=== PATIENT | female | born 1990 | race Caucasian/White ===

== ENCOUNTER 2018-03-29 15:30 | Inpatient (IN) ==
--- NOTE | 2018-03-29 16:27 | Diag Imaging Result Doc PS360 ---
EXAM: KUB ABDOMEN - 03/29/2018 HISTORY: post op constipation TECHNIQUE: AP spine abdomen COMPARISON: None. FINDINGS: There is relative paucity of visible bowel gas. There is a small amount of gas visible in the stomach and mid transverse colon. There is mild gaseous distention of a loop of small bowel in the midabdomen. There is no other abnormal gaseous bowel distention identified. There is no obvious excessive retained fecal debris in the colon. There are surgical clips at the right upper quadrant. IMPRESSION: Relatively paucity of visible bowel gas. There is mild gaseous distention of a loop of small bowel at the midabdomen. There is no obvious excessive retained fecal debris in the colon. Electronically signed by Mason Coyle 03/29/2018 4:25 PM
[2018-03-29 16:38] LABS: BILIRUBIN URINE 2+ (NEGATIVE); BLOOD URINE 4+ (NEGATIVE); CLARITY VERY CLOUDY (CLEAR); GLUCOSE URINE NEGATIVE (NEGATIVE); KETONE URINE 3+(Large) mg/dL (NEGATIVE); LEUKOCYTES URINE 1+ (NEGATIVE); NITRITE URINE NEGATIVE (NEGATIVE); PH URINE 6.5; PROTEIN URINE 1+(30 mg/dL) mg/dL (NEGATIVE); UROBILINOGEN URINE 4 mg/dL
[2018-03-29 16:42] LABS: COLOR ORANGE; URINE BACTERIA 1+ /HFP; URINE EPITHELIAL CELLS >10 /HPF (<10)
[2018-03-29 16:43] LABS: URINE CAST NONE SEEN /LPF; URINE CRYSTAL NONE SEEN /HPF; URINE RBC TNTC /HPF (<10); URINE SOURCE CLEAN CATCH; URINE YEAST NONE SEEN /HPF
[2018-03-29] MEDS ORDERED: NS 1,000 ML IV ONE (17:38)
[2018-03-29] MEDS ORDERED: ZOFRAN IV ONE (17:38)
--- NOTE | 2018-03-29 17:44 | PROVIDER DOCUMENTATION ---
HPI-Abdominal Pain/GI Problem - General Chief Complaint: Post Op Complaint Stated Complaint: ABD PAIN Time Seen by Provider: 03/29/18 17:04 Allergies/Adverse Reactions: Patient Allergies Allergy/AdvReac Type Severity Reaction Status Date / Time albuterol Allergy Unknown Verified 12/23/17 18:13 promethazine HCl * Allergy ANAPHYLAXIS Verified 12/23/17 18:13 [From Phenergan] Home Medications: Home Medication List Medication Instructions Recorded Confirmed Last Taken Type Vit #108/Iron/FA 1 each PO DAILY 09/23/15 03/29/18 Unknown History [ One Tablet] Hydrocodone/APAP 5 mg/325 mg 1 each PO Q3H PRN PRN #30 tablet 09/25/15 03/29/18 Unknown Rx [[place]-5] Pyridoxine HCl [Vitamin B-6] 25 mg PO TID PRN #20 tab 05/14/17 03/29/18 Unknown Rx Brexpiprazole [Rexulti] 1 mg PO DAILY 03/30/18 03/30/18 Unknown History Ergocalciferol (Vitamin D2) 50,000 unit PO Q7D 03/30/18 03/30/18 Unknown History [Vitamin D] Escitalopram Oxalate [Lexapro] 10 mg PO DAILY 03/30/18 03/30/18 Unknown History Escitalopram Oxalate [Lexapro] 10 mg PO DAILY 03/30/18 03/30/18 Unknown History Metoclopramide [Reglan Liquid] 5 mg PO Q6HR 03/30/18 03/30/18 Unknown History - History of Present Illness-ABD Nature of Presenting Problems: Patient said she had cholecystectomy 1 week ago and since that time had nausea, sick stomach, small amount of watery stool for the last few days. she denies vomiting. report not eating just drink fluid. Review of Systems - Adult - REVIEW OF SYSTEMS - ADULT Constitutional: reports: no symptoms reported Eyes: reports: no symptoms reported Ears, Nose, Mouth & Throat: reports: no symptoms reported Cardiovascular: reports: no symptoms reported Respiratory: reports: no symptoms reported Gastrointestinal: reports: see HPI Genitourinary: reports: dysuria, hesitency Past History - Adult - PAST MEDICAL HISTORY-ADULT Review of Records: reports: Old Records Reviewed, Nursing Assessment Review, Medications Reviewed, Social history reviewed & non-contributory. Major Childhood Illnesses: reports: denies history Cardiovascular: reports: denies history Respiratory: reports: denies history Gastrointestinal: reports: denies history Obstetrical/Gynecological: reports: denies history Genitourinary: reports: denies history Musculoskeletal: reports: denies history Neurological: reports: denies history Endocrine/Immune: reports: denies history Other Conditions: reports: denies history - IMMUNIZATION STATUS Childhood Immunizations: See Nurse Assessment Flu Vaccine: See Nurse Assessment - FAMILY HISTORY Family History: reviewed, not pertinent Physical Exam-General - PHYSICAL EXAM-ADULT Initial Vital Signs Reviewed: Yes - CONSTITUTIONAL General Appearance: alert, obese, other (looks tired) - EYES Eyes: PERRL/EOMI - HEAD, EARS, NOSE, MOUTH & THROAT HENMT: normocephalic/atraumatic, moist mucous membranes - NECK Neck: non-tender, full range of motion, supple - RESPIRATORY Respiratory: lungs clear, normal breath sounds - CARDIOVASCULAR Cardiovascular: normal peripheral pulses, regular rate, rhythm, no edema - GASTROINTESTINAL (ABDOMEN) Abdominal Exam: normal bowel sounds, soft, tenderness (around surgery site, lower abdominal tenderness.) - MUSCULOSKELETAL Back Exam: normal inspection, no CVA tenderness, no vertebral tenderness Extremity: normal range of motion, non-tender Progress - PLAN OF CARE/RESULTS Progress/Plan/Lab Results: Vital Signs - 8 hr 03/29/18 15:37 03/29/18 16:33 Temperature 98 F 98.4 F Pulse Rate 122 H 89 Respiratory Rate 18 18 Blood Pressure 138/89 O2 Sat by Pulse Oximetry 97 100 Bedside Urine ED: Urine Bedside Start: 03/29/18 15:41 Freq: ORDERED Status: Active Protocol: Activity Type Activity Date Activity User E-Sign Co-Sign Detail Recorded Client Recorded Date Recorded By Document 03/29/18 15:49 [id number] 03/29/18 15:49 [id number] 03/29/18 15:49 Point of Care [Bedside Point of Care] -Lot # [id number] - Results Negative -Control Line Visible? Yes Laboratory Results - last 24 hr 03/29/18 15:47 Urine Source CLEAN CATCH Urine Color ORANGE Urine Clarity VERY CLOUDY A Urine pH 6.5 Ur Specific [place] 1.010 Urine Protein 1+(30 mg/dL) A Urine Ketones 3+(Large) A Urine Blood 4+ Urine Nitrite NEGATIVE Urine Bilirubin 2+ A Urine Urobilinogen 4 Urine Microscopic RBC TNTC A Urine WBC 1+ A Urine Microscopic WBC 10-20 A Ur Epithelial Cells >10 A Urine Crystals NONE SEEN Urine Bacteria 1+ Urine Casts NONE SEEN Urine Yeast NONE SEEN Urine Glucose NEGATIVE Orders Category Date Time Status ED: Urine Bedside ORDERED Care 03/29/18 15:41 Active KUB ABDOMEN [RAD] Stat Exams 03/29/18 15:48 Completed CBC WITH ELECTRONIC DIFF [HEME] Stat Lab 03/29/18 17:28 Ordered CMP [COMPREHENSIVE METABOLIC PANEL] [CHEM] Stat Lab 03/29/18 17:[address] W/POSS RFLX CULT [URINALYSIS] Stat Lab 03/29/18 15:47 Completed URINE CULTURE [RM] Routine Lab 03/29/18 16:43 Ordered 0.9% Sodium Chloride Inj [Ns] 1,000 ml Med 03/29/18 17:38 Active IV 999 mls/hr Ondansetron [Zofran] Med 03/29/18 17:38 Once 8 mg IV NOW ONE Patient care, assessment and plan discussed with the attending physician Dr. Loomis and he agree with the plan as documented. Result Diagrams: 03/30/18 07:08 03/30/18 07:08 - CONSULTS/PCP/HOSPITALIST Notification #1 *Consult/PCP/Hospitalist*: Dr. Fishman Time Discussed: 18:49 Consult Disposition: Admit (Hx, PE and care discussed with Dr. Fishman, accepted.) Departure - Departure Date of Disposition Decision: 03/29/18 Time of Disposition Decision: 18:49 DIAGNOSIS: Hyponatremia, Hypoalbuminemia, Hyperbilirubinemia Leukocytosis Qualifiers: Leukocytosis type: unspecified Qualified Code(s): D72.829 - Elevated white blood cell count, unspecified Disposition: ADMITTED INPATIENT 09 Certified Medical Emergency: Emergent Condition: Stable - Critical Care Note This patient required my direct & personal management of CC.: No Attestation - Physician/ CHRIS Attestation Patient care was provided by Advanced Practice Provider:: No The physician spent face to face time with patient:: Yes Advanced Practice Provider documentation review:: Supervising physician onsite and consulted in the evaluation and care of this patient. The physician did have a face to face encounter with the patient.
[2018-03-29 18:13] LABS: ESTIMATED GFR > 60
[2018-03-29 18:24] LABS: AGAP 16; ALBUMIN 2.9 g/dL (3.5-5.0); ALKALINE PHOSPHATASE 172 U/L (32-104); BUN 13 mg/dL (8-22); CALCIUM 8.9 mg/dL (8.8-10.2); CHLORIDE 82 mmol/L (98-107); COSMO 254; CREATININE 0.5 mg/dL (0.5-0.9); GLUCOSE 101 mg/dL (70-104); GOT 63 U/L (10-30); GPT 124 U/L (10-36); POTASSIUM 4.3 mmol/L (3.5-5.1); SODIUM 126 mmol/L (136-145); TCO2 27 mmol/L (25-35); TOTAL PROTEIN 7.5 g/dL (6.3-8.3)
[2018-03-29 18:47] LABS: WBC 16.32 X1000 (4.8-10.8)
[2018-03-29 18:48] LABS: HEMATOCRIT 42.6 % (37.0-47.0); HEMOGLOBIN 14.5 g/dL (12.0-16.0); MCH 29.4 PG (27-31); MCV 86.2 FL (81-99); MPV 10.7 FL (7.4-10.4); PLT 317 X1000 (130-400); RBC 4.94 XMIL (4.2-5.4)
[2018-03-29] MEDS ORDERED: ROCEPHIN 1 GM in NS 50 ML IV ONE (18:48)
[2018-03-29 18:49] LABS: BASO% 0.1 % (0.0-0.8); EOS% 0.1 % (0.0-10.0); LYMPH% 1.8 % (20.5-51.1); MONO% 1.6 % (1.7-9.3); NEUT% 12.6 % (42.2-75.2)
[2018-03-30] MEDS ORDERED: ZOFRAN IV PRN (03:37)
[2018-03-30] MEDS ORDERED: TYLENOL PO PRN (03:37)
[2018-03-30 07:28] LABS: HEMATOCRIT 39.5 % (37.0-47.0); HEMOGLOBIN 13.8 g/dL (12.0-16.0); MCH 31.4 PG (27-31); MCHC 34.9 g/dL (33-37); MCV 89.8 FL (81-99); MPV 9.1 FL (7.4-10.4); RBC 4.4 XMIL (4.2-5.4); RDW 12.5 % (11.5-14.5); WBC 13.77 X1000 (4.8-10.8)
[2018-03-30 08:12] LABS: ESTIMATED GFR > 60
[2018-03-30 08:13] LABS: AGAP 18; ALBUMIN 2.4 g/dL (3.5-5.0); ALKALINE PHOSPHATASE 148 U/L (32-104); BUN 11 mg/dL (8-22); CALCIUM 8.4 mg/dL (8.8-10.2); CHLORIDE 87 mmol/L (98-107); COSMO 257; CREATININE 0.5 mg/dL (0.5-0.9); GLUCOSE 104 mg/dL (70-104); GOT 30 U/L (10-30); GPT 82 U/L (10-36); POTASSIUM 4.4 mmol/L (3.5-5.1); SODIUM 128 mmol/L (136-145); TCO2 23 mmol/L (25-35); TOTAL PROTEIN 6.6 g/dL (6.3-8.3)
[2018-03-30] MEDS ORDERED: NS 1,000 ML IV SCH (09:00)
[2018-03-30] MEDS ORDERED: SODIUM CHLORIDE 0.9% INJ SCH (09:00)
[2018-03-30] MEDS: PROTONIX IV SCH (09:58)
[2018-03-30] MEDS: ZOSYN 3.375 GM in NS 50 ML IV SCH ×3 (12:07→22:38)
[2018-03-30] MEDS: NS 1,000 ML IV SCH ×2 (12:15→17:56)
[2018-03-30] MEDS ORDERED: MORPHINE IV PRN (16:51)
--- NOTE | 2018-03-30 19:54 | HISTORY AND PHYSICAL ---
CHIEF COMPLAINT: Abdominal pain, nausea, diarrhea. HISTORY OF PRESENT ILLNESS: This is a morbidly obese, 27-year-old female, who presents to the emergency room complaining of persistent nausea, watery stools, abdominal pain and distention and inability to eat solid food since she had a laparoscopic cholecystectomy 1 week ago. She denies any vomiting or any black or bloody stools. Abdominal x-ray revealed a small amount of gas in the stomach and mid transverse colon with mild gaseous distention of a loop of small bowel in the mid abdomen with no obvious excessive retained fecal debris. PAST MEDICAL HISTORY: She denies. PAST SURGICAL HISTORY: , cholecystectomy. SOCIAL HISTORY: She denies any alcohol, tobacco, or illicit drug use. ALLERGIES: Albuterol with unknown reaction and Phenergan which causes anaphylaxis. REVIEW OF SYSTEMS: Discussed with the patient with pertinent positives stated in the HPI. She denied any syncope, dizziness, any chest pain, palpitations, any shortness of breath, cough, fever, chills; any black or bloody vomitus or stool; hematuria, dysuria, frequency, urgency. PHYSICAL EXAMINATION: GENERAL: This is a morbidly obese, 27-year-old female, who is lying in the bed in mild distress. VITAL SIGNS: Blood pressure is 123/75 with a heart rate of 100, respirations are 20, temperature is 98.4 oral with room air saturations 96% to 99 percent. HEENT: Eyes: Pupils are equal, round, react to light. EOMs are intact. Sclerae anicteric. Head is normocephalic, atraumatic. Mucous membranes are dry. NECK: Supple with trachea midline. CARDIOVASCULAR: Regular rate and rhythm. S1 and S2 appreciated. PULMONARY: Breath sounds are clear with no increased work of breathing noted. Chest rises and falls symmetric with respiration. GASTROINTESTINAL: Abdomen distended, tender to palpation with no bowel sounds heard. She does have Band-Aids to the surgical sites. They are dry and intact. SKIN: Warm and dry. NEUROLOGIC: She is alert and oriented x3. LABS: WBC is 16.3 with hemoglobin 14.5, hematocrit 42.6, and platelets of 317. Sodium is 126, potassium 4.3, BUN 13, creatinine 0.5 with a glucose of 101. Total bilirubin is 3.6, with an AST of 63, ALT of 124, and alkaline phosphatase 172. Urinalysis reveals too numerous to count red blood cells, 10 to 20 microscopic white blood cells, greater than 10 epithelial cells, which very well could be contamination and urine culture revealed no growth. It was contamination. Abdominal x-ray as stated above. ASSESSMENT AND PLAN: This is a 27-year-old female who presents with abdominal distention, nausea and watery diarrhea, one week postop cholecystectomy. 1. Ileus. 2. Abdominal distention and pain 3. Leukocytosis. 4. Hyponatremia. 5. Acute hepatitis 6. elevated bilirubin 7. hypotension PLAN: The patient has been admitted to the medical-surgical floor. She will be n.p.o. We will consult General Surgery. We will start Protonix IV antibiotic coverage of Zosyn. We will give normal saline for hydration. We will repeat her CBC and CMP in the morning. We will give morphine 2 mg q.4 hours as needed for pain. Start incentive spirometer. We will identify her home medications and restart as is appropriate. Further treatments pending hospital course. Dictated by SUZIE Gacria for Noe Fishman MD This chart was documented by, SUZIE Garcia and accurately reflects the services performed, treatment plan and medical decisions as attested by the providers signature Noe Fishman MD. cc: SUZIE Garcia MD [facility]ITAL[facility]ahz[facility]
--- NOTE | 2018-03-30 22:35 | GENERAL SURGERY CONSULTATION ---
DATE: 03/30/2018 REASON FOR CONSULTATION: Postcholecystectomy abdominal pain and elevated bilirubin. HISTORY OF PRESENT ILLNESS: This is a 27-year-old female who had laparoscopic cholecystectomy 9 days ago in [place] by another physician. It was apparently an outpatient elective surgery. Since that time she has had generalized constant abdominal pressure and fullness, causing her to be unable to eat. She has had very poor p.o. intake. She denies nausea, but she has had some regurgitation of food. She has had liquid stools. No fever. No exacerbating or relieving factors. She had cold her physicians in [place], but I guess felt like she was not getting the care or answer she wanted, so she came to our emergency room. She has been admitted by the hospitalist and I was consulted for evaluation. PAST MEDICAL HISTORY: Bipolar disorder, anxiety, depression. HOME MEDICATIONS: 1. Lexapro. 2. Rexulti. ALLERGIES: Phenergan, albuterol. PAST SURGICAL HISTORY: Laparoscopic cholecystectomy, multiple C-sections. FAMILY HISTORY: Reviewed and noncontributory. SOCIAL HISTORY: Negative for tobacco, alcohol or illicit drug use. REVIEW OF SYSTEMS: Ten systems reviewed and negative except as noted above. PHYSICAL EXAMINATION: Temperature 99.3 degrees, pulse 105, respirations 20, blood pressure 115/77, O2 saturation 99%. General: A well-developed female who looks her stated age in no acute distress. HEENT: Normocephalic, atraumatic. Extraocular muscles intact. Pupils equal, round, reactive to light. Sclerae anicteric. Moist mucous membranes. Hearing grossly normal. Neck supple. no thyromegaly. CV: Tachycardic and regular. Respiratory: Bilaterally equal breath sounds. No work of breathing. GI: Soft, nondistended, obese. Mildly tender diffusely. No rebound or guarding. No organomegaly or mass. No hernias appreciated. There is some mild bruising around the incisions in lower abdominal wall. Her laparoscopic incisions appear to be intact and without signs of infection. Extremities: No clubbing, cyanosis or edema. Skin warm and dry. No rash. Musculoskeletal: Moves all extremities equally and well. LABORATORY DATA: White blood cell count 16,000 yesterday, 13.7 today. Hemoglobin 13.8, hematocrit 39.5, platelet count 569,000. Sodium 126 yesterday, today 128. Potassium 4.4, chloride 87, CO2 is 23, BUN 11, creatinine 0.5, glucose 104. Total bilirubin 3.6 yesterday, 2.8 today. AST 63 yesterday, 30 today. ALT 124 yesterday, 82 today. Alkaline phosphatase 172 yesterday, 148 today. Albumin 2.4. DIAGNOSTIC DATA: Abdominal x-ray shows some mild gaseous distention of a small-bowel loop, but no significant retained fecal debris in the colon or constipation. ASSESSMENT AND PLAN: A 27-year-old female with generalized abdominal pain, poor oral intake, hyponatremia and elevated liver function tests after laparoscopic cholecystectomy. She does not have a surgical abdomen tonight. It is unclear the etiology of her persistent symptoms. We will repeat her labs tomorrow and check an ultrasound of the abdomen to evaluate the liver and bile ducts. In addition, I have requested the operative report from the outside facility. If it appears she will need further surgical care, we will arrange for transfer to [place]. cc: Michele Nicole MD
--- NOTE | 2018-03-31 01:36 | HISTORY AND PHYSICAL ---
ADDENDUM: Patient seen and examined by myself. Full note dictated and discussed with nurse practitioner. Patient presented to the hospital with increased abdominal pain and nausea. She has not really had any vomiting. Notes that she had surgery on her gallbladder approximately 10 days ago in [place]. She has not really eaten or drank anything since then. We will admit her to the hospital. She currently is having very little bowel sounds. She was seen initially last night in the ER with a white count of 16. It has dropped slightly to 13. Sodium is up slightly from 126 to 128 and bilirubin is slightly improved down from 3.6 to 2.8. We will keep her NPO. We will ask Surgery to assist in her care and we will follow. cc: Noe Fishman MD
[2018-03-31] MEDS: NS 1,000 ML IV SCH ×2 (03:30→12:37)
[2018-03-31] MEDS: ZOSYN 3.375 GM in NS 50 ML IV SCH ×3 (05:31→18:57)
[2018-03-31 06:04] LABS: HEMATOCRIT 37.5 % (37.0-47.0); HEMOGLOBIN 12.8 g/dL (12.0-16.0); MCH 31.1 PG (27-31); MCHC 34.1 g/dL (33-37); MCV 91.2 FL (81-99); MPV 9.1 FL (7.4-10.4); RBC 4.11 XMIL (4.2-5.4); RDW 12.5 % (11.5-14.5); WBC 11.14 X1000 (4.8-10.8)
[2018-03-31 06:34] LABS: AGAP 14; ALBUMIN 1.9 g/dL (3.5-5.0); ALKALINE PHOSPHATASE 129 U/L (32-104); BUN 9 mg/dL (8-22); CALCIUM 7.9 mg/dL (8.8-10.2); CHLORIDE 95 mmol/L (98-107); COSMO 263; CREATININE 0.4 mg/dL (0.5-0.9); ESTIMATED GFR > 60; GLUCOSE 88 mg/dL (70-104); GOT 20 U/L (10-30); GPT 47 U/L (10-36); POTASSIUM 3.9 mmol/L (3.5-5.1); SODIUM 132 mmol/L (136-145); TCO2 23 mmol/L (25-35); TOTAL PROTEIN 5.9 g/dL (6.3-8.3)
[2018-03-31] MEDS: PROTONIX IV SCH (09:19)
[2018-03-31 09:27] LABS: C DIFF TOXIN PL NEGATIVE (NEGATIVE)
--- NOTE | 2018-03-31 11:51 | Diag Imaging Result Doc PS360 ---
EXAM: US ABDOMEN-COMPLETE HISTORY: post cholecystectomy pain, elevated lft's TECHNIQUE: Abdominal ultrasound COMPARISON: None. FINDINGS: The pancreas is predominantly obscured. No abdominal aortic aneurysm. There is fatty infiltration of the liver. Normal right kidney. No hydronephrosis. A small amount of fluid is found about the liver. The gallbladder is not present. No well-defined fluid collection. The common bile duct measures 6 mm. Moderate fluid in the left lower quadrant. Normal left kidney. No hydronephrosis. Normal spleen. A small amount of fluid is found about the spleen. IMPRESSION: 1.Fatty infiltration of the liver 2.Cholecystectomy 3.Small amount of fluid about the liver and spleen with a moderate amount in the left lower quadrant. No well-defined abscess. Electronically signed by Frank Bauer 03/31/2018 11:49 AM
[2018-03-31] MEDS ORDERED: NS 1,000 ML IV SCH (14:15)
--- NOTE | 2018-03-31 15:25 | PROGRESS NOTE ---
DATE: 03/31/2018 SUBJECTIVE: The patient notes she still feels terrible, still having abdominal cramping but not having severe pain. She had passed gas last night. However, she still has pain when eats. Still feels nauseated, feels cold, even though she has not eaten in a couple of days. Denies any hematemesis, hematochezia, or melena. PHYSICAL: Temperature 97.9, pulse 103, respiratory 18, BP 97/66.General: Patient is awake, alert. She is very pleasant to talk with. HEENT: Normocephalic. Neck: Supple. CARDIOVASCULAR: Regular rate. No murmurs. Chest: Decreased but equal breath sounds bilaterally. Abdomen: Soft, diffusely but mildly tender. No guarding. No hepatosplenomegaly. No rebound. Very decreased bowel sounds. Extremities: Moves all extremities. No edema. Neurologic: No changes. ASSESSMENT: 1. Ileus. 2. Leukocytosis. 3. Hyponatremia. 4. Hypotension. 5. Acute hepatitis. 6. Hyperbilirubinemia. 7. Moderate protein calorie malnutrition. PLAN: Overall patient appears to be slightly improved although still quite ill in appearance. Her sodium has improved. Her LFTs, both AST and ALT, both have improved. Total bilirubin continues to drift down from a high of 3.6, currently 2.2. We will keep her NPO, continue IV fluids, pain control, although thankfully she has not been taking lots of pain medications. Discussed with her ileus and the effect pain medication has. We will continue to follow. We will continue pain control, IV fluids. Have discussed with Dr. Nicole, General Surgery. We will attempt if possible to transfer her back to her surgeon in [place]. If this is not successful, we will have to transfer her to [facility] for further testing. cc: Noe Fishman MD [facility]
[2018-03-31 17:05] VITALS: BP 120/54
--- NOTE | 2018-03-31 19:43 | GENERAL SURGERY PROGRESS NOTE ---
DATE: 03/31/2018 SUBJECTIVE: The patient continues to complain of generalized abdominal pain, actually a little worse on the left side than the right. She is also having trouble urinating, feeling like she has to push to urinate. OBJECTIVE: She is afebrile. Pulse 112, respiratory rate 16, blood pressure 107/66, O2 saturation 98%. General: She is alert and oriented x4. No acute distress. CV: Tachycardic and regular. Respiratory: No work of breathing. GI: Soft. Diffusely tender, more so on the left side. No rebound or guarding. Not particularly distended. LABORATORY DATA: White blood cell count 11,000, hemoglobin 12.8, hematocrit 37.5, platelet count 464,000. Sodium 132, potassium 3.9, chloride 95, CO2 is 23, BUN 9, creatinine 0.4, glucose 88, AST 20, ALT 47, alkaline phosphatase 129, total bilirubin 2.2, albumin 1.9. DIAGNOSTIC DATA: Abdominal ultrasound revealed a small amount of fluid around the liver and spleen, a more moderate amount of fluid in the left lower quadrant. Common bile duct is 6 mm. ASSESSMENT AND PLAN: A 27-year-old female with abdominal pain, leukocytosis, tachycardia, elevated liver function tests and ascites. It is unclear what the etiology of her current illness is, but the possibility of a surgical complication such as a bile leak is considered. She also may have had a common duct stone which has passed, since her labs are improving. In any case, I have discussed her case with her surgeon, Dr. Yañez in [place], and he has agreed to accept her in transfer for further workup and care, and to rule out these issues. cc: Michele Nicole MD
--- NOTE | 2018-04-01 02:02 | DISCHARGE SUMMARY ---
ADMISSION DATE: 03/29/2018 DISCHARGE DATE: 03/31/2018 DIAGNOSES: 1. Abdominal distention and pain. 2. Ileus. 3. Leukocytosis. 4. Hyponatremia. 5. Hypotension. 6. Acute hepatitis. 7. Hyperbilirubinemia. 8. Moderate protein calorie malnutrition. CONSULTS: Dr. Michele Nicole in General Surgery. DIAGNOSTICS: 1. 03/29/2017 abdominal x-ray revealed relatively paucity of visible gas, revealed mild gaseous distention of a loop of small bowel at the mid abdomen with no obvious excessive retained fecal debris in the colon. 2. Abdominal ultrasound revealed fatty infiltration of the liver, cholecystectomy. No hydronephrosis. A small amount of fluid is found about the liver. The gallbladder is not present. No well-defined fluid collection. Common bile duct measures 6 mm. Moderate fluid in the left lower quadrant. Normal left kidney. No hydronephrosis. Normal spleen. A small amount of fluid is found about the spleen. MICROBIOLOGY: Urine culture revealed no pathogenic growth. HOSPITAL COURSE: Ms. Hughes presented to the emergency room 9 days status post laparoscopic cholecystectomy. Since that time she has had general constant abdominal pain and fullness, being unable to eat. She presented to the emergency room and was found to have some gaseous distention of a small bowel loop. Dr. Nicole, general surgery, was consulted. She was evaluated. After evaluation, he did order abdominal ultrasound. After review and reassessing the patient, he spoke with patient's surgeon in [place], [place], and it was agreed that the patient would be transferred back for him to further evaluate. DISCHARGE PHYSICAL EXAMINATION: Cardiovascular: Regular rate and rhythm. S1, S2 appreciated. Pulmonary: Breath sounds are clear with no increased work of breathing noted. Gastrointestinal: Abdomen is soft, mildly tender. She has no guarding. No hepatosplenomegaly. No rebound. She does have very decreased bowel sounds. Extremities: She has no edema and calves are nontender to palpation bilateral. Discharge vital signs: Blood pressure is 120/54 with heart rate of 98, respirations are 16, temperature is 98.2 degrees oral with room air saturations 98%. MEDICATIONS ON DISCHARGE: 1. Zosyn 3.375 IV q.6 hours. 2. Protonix 40 mg IV q.24 hours. 3. Zofran 4 mg IV q.6 hours p.r.n. 4. Morphine 2 mg IV q.4 hours p.r.n. 5. Tylenol 650 p.o. q.6 hours p.r.n. DISPOSITION: She is being discharged in transfer to [facility] via EMS transport in stable condition. Family members are present. TIME SPENT: This is a greater than 30 minute discharge. Dictated by SUZIE Garcia for Noe Fishman MD This chart was documented by, SUZIE Garcia and accurately reflects the services performed, treatment plan and medical decisions as attested by the providers signature Noe Fishman MD. cc: SUZIE Garcia MD
--- NOTE | 2018-04-01 03:38 | DISCHARGE SUMMARY ---
ADMISSION DATE: 03/29/2018 DISCHARGE DATE: 03/31/2018 ADDENDUM: The patient is seen and examined. Full note dictated by myself. Full note dictated and discussed with nurse practitioner. Patient as noted on earlier notes was still not having good bowel sounds, having continued abdominal pain. We were able to contact her surgeon who did her cholecystectomy earlier in the week and we will transfer her back to his care at [facility] in [place]. Please see full note. cc: Noe Fishman MD
== END 2018-03-31 19:00 | disposition short-term general hospital (02) | DRG 389 ==
LOC: P.ED 15:30 → P.MEDSURG 21:06
PROVIDERS: ATTEND Family Medicine
CPT/HCPCS: 74000; 74018; 76700; 80053; 81001; 81025; 85025; 85027; 87088; 87324; 87449; 94761; 94799; 96361; 96365; 96375; 99285; A9270; C9113; J0696; J2405; J2543; J7030; S0164